=== PATIENT | male | born 1950 | race Caucasian/White ===

== ENCOUNTER → 2017-02-28 | Outpatient (CLI) | payer MEDICARE, OTHER ==
[~2017-02-28] MED LIST: ASPIRIN 81MG TA81 MG PO; ATORVASTATIN CA20 MG PO; B/P MED; HYDROCHLOROTHIA25 M1 PO; LISINOPRIL20 MG PO; NEXIUM40 MG PO; OMEPRAZOLE20 MG PO; VERAPAMIL HCL120 M2 PO; VICODIN 5/500 T1 TAB PO
[2017-02-28 12:34] LABS: AEROMONAS NOT DETECTED (NOT DETECTE); ASTROVIRUS NOT DETECTED (NOT DETECTE); CYCLOSPORA CAYETANENSIS NOT DETECTED (NOT DETECTE); E COLI O157 NOT DETECTED (NOT DETECTE); ENTEROAGGREGATIVE E COLI NOT DETECTED (NOT DETECTE); ENTEROTOXIGENIC E COLI NOT DETECTED (NOT DETECTE); NOROVIRUS NOT DETECTED (NOT DETECTE); SAPOVIRUS NOT DETECTED (NOT DETECTE); SHIGA-LIKE TOXIN PROD. E COLI NOT DETECTED (NOT DETECTE); SHIGELLA/ENTEROINVASIVE E COLI NOT DETECTED (NOT DETECTE); VIBRIO CHOLERAE NOT DETECTED (NOT DETECTE)
[2017-02-28 15:19] LABS: ENTEROPATHOGENIC E COLI DETECTED (NOT DETECTE)
== END ==
LOC: LAB 11:35
PROVIDERS: Nurse Practitioner Family
DX: K52.9 Noninfective gastroenteritis and colitis, unspecified (principal)